=== PATIENT | male | born 1940 | race Caucasian/White ===

== ENCOUNTER 2016-12-06 19:49 | Inpatient (IN) | payer MEDICARE, OTHER ==
[~2016-12-06 19:49] MED LIST: ISOVUE-370 76%-LOCM 1 ML ONE
[2016-12-06] MEDS ORDERED: Diazepam 5 MG TAB ONE (22:27)
[2016-12-06] MEDS ORDERED: methylPREDNISolone Sod Succ/PF 125 MG/2 ML VIAL ONE (23:20)
[2016-12-06] MEDS ORDERED: diphenhydrAMINE HCl 50 MG/ML 1 ML VIAL ONE (23:20)
[2016-12-06] MEDS ORDERED: Famotidine/PF 20 mg/2ml Vial ONE (23:20)
[2016-12-06] MEDS ORDERED: Water For Inject, Bacteriostat 30 ML ONE (23:21)
--- NOTE | 2016-12-06 23:58 | ULT ---
SCROTAL ULTRASOUND: 12/06/16 INDICATION: History of lithotripsy with right testicular pain and swelling after helping up off the ground. FINDINGS: The right testicle measures 4.6 x 2.8 x 3.4 cm. The left testicle measures 4.0 x 2.4 x 3.2 cm. There is small bilateral hydroceles. There is normal flow to both testicles. There are bilateral epididym al cysts. The largest cyst within the right epididymal head measures 8 mm. The largest cyst within t he left epididymis measures 1.5 x 1 x 1.3 cm. There is mixed echogenicity soft tissue seen within the right inguinal canal without visible bowel g as suspicious for fat containing inguinal hernia. IMPRESSION: 1. Small bilateral hydroceles. 2. No intratesticular mass or torsion demonstrated. 3. Mixed echogenicity soft tissue seen within the right inguinal canal may reflect a fat contai mattie hernia or possibly a hernia containing decompressed bowel. Recommend correlation with the clini shanae exam. POS: [facility]
[2016-12-07 02:04] LABS: #Lymphocytes 0.8 thou/uL (1.20-3.40); #Monocytes 0.5 thou/uL (0.11-0.59); #Neutrophils 12.5 thou/uL (1.40-6.50); %Basophils 0.2 % (0.0-1.0); %Eosinophils 0.3 % (0.0-10.0); %Lymphocytes 5.6 % (21.0-51.0); %Monocytes 3.4 % (0.0-10.0); Hematocrit 43.2 % (42.0-52.0); Mean Platelet Volume 7.9 fL (7.4-10.4); Red Blood Cell (RBC) Count 4.65 mill/uL (4.70-6.10); White Blood Cell (WBC) Count 13.8 thou/uL (4.8-10.8)
[2016-12-07 02:30] LABS: ALT (SGPT) 17 U/L (8-55); AST (SGOT) 18 U/L (5-34); Alkaline Phosphatase 63 U/L (40-150); Anion Gap 13 mmol/L (10-20); BUN (Urea Nitrogen) 26 mg/dL (8.4-25.7); Bilirubin, Total 0.6 mg/dL (0.2-1.2); Calc. Creatinine Clearance 0 mL/min (70-130); Calcium 8.9 mg/dL (7.8-10.44); Carbon Dioxide 20 mmol/L (23-31); Chloride 108 mmol/L (98-107); Estimated GFR-MDRD 32; Globulin 2.6 g/dL (2.4-3.5); Magnesium 1.8 mg/dL (1.6-2.6); Protein, Total 6.6 g/dL (5.8-8.1)
[2016-12-07] MEDS ORDERED: Levofloxacin 500 mg/D5W 100 ml Premix Bag ONE (02:33)
[2016-12-07 03:10] LABS: Bilirubin Negative (Negative); Blood, Urine Large (Negative); Glucose, Urine (Dipstick) Negative (Negative); Ketone, Urine Negative (Negative); Nitrite Negative (Negative); Protein, Urine (Dipstick) 30 mg/dL (Neg-Trace); Urobilinogen 0.2 mg/dL (0.2-1.0)
[2016-12-07 03:16] LABS: Bacteria/HPF None Seen HPF (None Seen); Hyaline Casts/LPF 0-3 HYALINE CAST LPF (0-3 Hyaline); Squamous Epithelial None Seen HPF (0-3); WBC/HPF 0-3 HPF (0-3)
[2016-12-07] MEDS ORDERED: Labetalol HCl 100 MG/20 ML VIAL SLOW IVP PRN (03:48)
[2016-12-07] MEDS ORDERED: Ondansetron ODT 4 MG TAB SL PRN (03:48)
[2016-12-07] MEDS ORDERED: Ondansetron HCl/PF 4 MG/2 ML Vial IVP PRN ×2 (03:48→10:12)
[2016-12-07] MEDS ORDERED: HYDROcodone/Acetaminophen 5/325 mg Tablet PO PRN ×3 (03:48→10:08)
[2016-12-07 03:55] VITALS: BMI 29.2
[2016-12-07] MEDS ORDERED: Sodium Chloride 0.45% 1,000 ML IV SCH (04:00)
[2016-12-07] MEDS ORDERED: Bisacodyl 10 MG SUPP PR PRN (07:37)
[2016-12-07] MEDS ORDERED: Mag-Al 1200 mg/1200 mg/30 ML UDCUP PO PRN (07:37)
[2016-12-07 08:50] LABS: Anion Gap 15 mmol/L (10-20); BUN (Urea Nitrogen) 23 mg/dL (8.4-25.7); Calc. Creatinine Clearance 48 mL/min (70-130); Calcium 8.8 mg/dL (7.8-10.44); Carbon Dioxide 19 mmol/L (23-31); Chloride 108 mmol/L (98-107); Estimated GFR-MDRD 41
[2016-12-07] MEDS: Sodium Chloride 0.9% 1,000 ML IV SCH ×2 (08:54→17:12)
[2016-12-07] MEDS: Docusate 100 MG CAP PO SCH ×4 (08:56→21:48)
--- NOTE | 2016-12-07 09:24 | CT ---
PRELIMINARY REPORT/[facility]/EMERGENCY AFTER HOURS PROCEDURE: EXAM: CT Abdomen and Pelvis With Intravenous Contrast CLINICAL HISTORY: 76 years old, male; lower abdominal pain; Prior surgery: Post-operative (0-2 days); had right nephro lithotripsy previous day with ureteral dilation, experienced sudden onset of scrotal pain and swelli ng at 1700 after bending over. Swelling / pain increased with 2 subsequent urinations, though pain is minimal at rest. TECHNIQUE: Axial computed tomography images of the abdomen and pelvis with intravenous contrast. Coronal reformatted images were created and reviewed. CONTRAST: 70 mL of isovue 370- administered intravenously. COMPARISON: No relevant prior studies available. FINDINGS: Lower thorax: Mitral valve annulus calcification. ABDOMEN: Liver: Liver fatty infiltration. Gallbladder and bile ducts: Unremarkable. No calcified stones. No ductal dilation. Pancreas: Unremarkable. No mass. No ductal dilation. Spleen: Unremarkable. No splenomegaly. Adrenals: Unremarkable. No mass. Kidneys and ureters: Bilateral calcified renal stones. Satisfactory position of the right internal u reteral stent. Proximal pigtail is located within the right renal pelvis with distal pigtail located within the urinary bladder lumen. Mild right hydronephrosis despite the right internal ureteral stent - feliz nt partial occlusion is a possibility. Right perinephric fluid extending into the right anterolatera l pelvis. Fluid extends along the length of the right inguinal canal into the visualized superior right scrotu m. No left hydronephrosis. Stomach and bowel: Scattered colon diverticuli without evidence of diverticulitis. No obstruction. Appendix: No findings to suggest acute appendicitis. PELVIS: Bladder: Distended urinary bladder extending cephalad to the L5-S1 level. Small amount of air within the anterior aspect of the urinary bladder which is likely due to recent instrumentation. Infection cannot be totally excluded. Reproductive: Mild soft tissue edema of the visualized superior right scrotum. ABDOMEN and PELVIS: Intraperitoneal space: Four or five small extraluminal air collections anterior to the right renal p zeus region / within the medial right perinephric region on axial images 32-39 and 45-47 - findings may be postsurgical in nature. Infection cannot be totally excluded. No significant fluid collection. Bones/joints: Spinal degenerative changes. No acute fracture. No dislocation. Soft tissues: Unremarkable. Vasculature: Unremarkable. No abdominal aortic aneurysm. Lymph nodes: Unremarkable. No enlarged lymph nodes. IMPRESSION: 1. Satisfactory position of the right internal ureteral stent. 2. Mild right hydronephrosis despite the right internal ureteral stent - stent partial occlusion is a possibility. Right perinephric fluid extending into the right anterolateral pelvis. Fluid extends along the length of the right inguinal canal into the visualized superior right scrotum. 3. Four or five small extraluminal air collections anterior to the right renal pelvis region / withi n the medial right perinephric region on axial images 32-39 and 45-47 - findings may be postsurgical in nature. Infection cannot be totally excluded. 4. Mild soft tissue edema of the visualized superior right scrotum. 5. Distended urinary bladder extending cephalad to the L5-S1 level. Small amount of air within the a nterior aspect of the urinary bladder which is likely due to recent instrumentation. Infection canno t be totally excluded. 6. Bilateral calcified renal stones. 7. Scattered colon diverticuli without evidence of diverticulitis. Thank you for allowing us to participate in the care of your patient. Dictated and Authenticated by: Marlon Mcneill MD 12/07/2016 12:44 AM Central Time ([place] \T\ [place]) FINAL REPORT CT ABDOMEN AND PELVIS WITH CONTRAST: HISTORY: Right-sided nephrolithotripsy. FINDINGS: Preliminary exam was performed by [facility]. A contrast enhanced CT of the abdomen and pelvis was performed. There is a right-sided ureteral stent. There is fluid seen tracking along the right perirenal space , extending into the right inguinal canal. Bilateral renal calculi are seen. The right ureteral st ent follows its normal course, with the proximal portion in the right renal pelvis and distally in t he bladder. There does appear to be a small amount of retroperitoneal gas just medial to the right renal pelvis and anterior to it. This may be from recent instrumentation and may be iatrogenically introduced gas. I concur with the dictation from [facility]. POS: [facility]
--- NOTE | 2016-12-07 09:27 | CT ---
PRELIMINARY REPORT/[facility]/EMERGENCY AFTER HOURS PROCEDURE: EXAM: CT Abdomen and Pelvis Without Intravenous Contrast CLINICAL HISTORY: 76 years old, male; lower abdominal pain; Prior surgery: Post-operative (0-2 days); had right nephro lithotripsy previous day with ureteral dilation, experienced sudden onset of scrotal pain and swelli ng at 1700 after bending over. Swelling / pain increased with 2 subsequent urinations, though pain is m inimal at rest. Additional info: *rescan done after delay TECHNIQUE: Axial computed tomography images of the abdomen and pelvis without intravenous contrast. Coronal reformatted images were created and reviewed. COMPARISON: CT Abdomen Pelvis W Con 12/07/2016 12:12:28 AM FINDINGS: Lower thorax: Mitral valve annulus calcification. ABDOMEN: Liver: Liver fatty infiltration. Gallbladder and bile ducts: Unremarkable. No calcified stones. No ductal dilation. Pancreas: Unremarkable. No mass. No ductal dilation. Spleen: Unremarkable. No splenomegaly. Adrenals: Unremarkable. No mass. Kidneys and ureters: Bilateral calcified renal stones. Satisfactory position of the right internal u reteral stent. Proximal pigtail is located within the right renal pelvis with distal pigtail located within the urinary bladder lumen. On delayed images, contrast material and perinephric fluid extend ing into the right anterolateral pelvis. Fluid extends along the length of the right inguinal canal into the visualized superior right scrotum. Likely leak from the proximal right ureter.. No left hyd ronephrosis. Stomach and bowel: Scattered colon diverticuli without evidence of diverticulitis. No obstruction. Appendix: No findings to suggest acute appendicitis. PELVIS: Bladder: Distended urinary bladder extending cephalad to the L5-S1 level. Small amount of air within the anterior aspect of the urinary bladder which is likely due to recent instrumentation. Infection cannot be totally excluded. Reproductive: Mild soft tissue edema of the visualized superior right scrotum. ABDOMEN and PELVIS: Intraperitoneal space: Four or five small extraluminal air collections anterior to the right renal p zeus region / within the medial right perinephric region on axial images 32-39 and 45-47 - findings may be postsurgical in nature. Infection or leak cannot be totally excluded. No significant fluid c ollection. Bones/joints: Spinal degenerative changes. No acute fracture. No dislocation. Soft tissues: Unremarkable. Vasculature: Unremarkable. No abdominal aortic aneurysm. Lymph nodes: Unremarkable. No enlarged lymph nodes. IMPRESSION: 1. Satisfactory position of the right internal ureteral stent. 2. Mild right hydronephrosis despite the right internal ureteral stent - stent partial occlusion is a possibility. On delayed images, contrast material and perinephric fluid extending into the right a nterolateral pelvis. Fluid extends along the length of the right inguinal canal into the visualized superior right scrotum. LIKELY LEAK FROM THE PROXIMAL RIGHT URETER. 3. Four or five small extraluminal air collections anterior to the right renal pelvis region / withi n the medial right perinephric region on axial images 32-39 and 45-47 - findings may be postsurgical in nature. Infection or leak cannot be totally excluded. 4. Mild soft tissue edema of the visualized superior right scrotum. 5. Distended urinary bladder extending cephalad to the L5-S1 level. Small amount of air within the a nterior aspect of the urinary bladder which is likely due to recent instrumentation. Infection canno t be totally excluded. 6. Bilateral calcified renal stones. 7. Scattered colon diverticuli without evidence of diverticulitis. 8. THIS REPORT CONTAINS FINDINGS THAT MAY BE CRITICAL TO PATIENT CARE. The findings were verbally communicated via telephone conference with RAMAN ABAD at 1:25 AM CD T on 12/07/2016. The findings were acknowledged and understood. Thank you for allowing us to participate in the care of your patient. Dictated and Authenticated by: Marlon Mcneill MD 12/07/2016 1:25 AM Central Time ([place] \T\ [place]) FINAL REPORT DELAYED CONTRAST ENHANCED CT IMAGES OF THE ABDOMEN AND PELVIS: FINDINGS: A preliminary exam was performed by [facility]. There appears to be perirenal right-sided fat stranding extending into the right inguinal canal. Th ere is extravasation of contrast outside the right ureter, along the right perirenal space. I concur with the dictation from [facility]. POS: [facility]
[2016-12-07] MEDS ORDERED: Zolpidem Tartrate 5 MG TAB PO PRN (10:12)
[2016-12-07] MEDS ORDERED: diphenhydrAMINE HCl 50 MG/ML 1 ML VIAL IVP PRN (10:12)
[2016-12-07] MEDS: cefTRIAXone\\ROCEPHIN 1 GM in Sodium Chloride 0.9% 100 ML IVPB SCH (11:03)
[2016-12-07] MEDS ORDERED: Morphine Sulfate 2 MG/ML SYRINGE IVP PRN (12:32)
--- NOTE | 2016-12-07 19:58 | CON ---
DATE OF CONSULTATION: 12/07/[address] Mccormick, primary urologist. PRIMARY CARE PHYSICIAN: Dr. Dennis Viveros. REASON FOR CONSULTATION: Right retroperitoneal fluid collection. Ureteral injury. HISTORY OF PRESENT ILLNESS: Mr. Holder is a pleasant 76-year-old male, postoperative day #2 for right ureteroscopy, dilation of right proximal ureter UPJ, renal stone extraction, laser lithotripsy, who presented to the emergency room due to abdominal distention, scrotal swelling. The patient stated that on postop day #1 began to have vague abdominal swelling, also resulting in right scrotal swelling. He has no significant flank or abdominal discomfort per se. This is mild. However, he was concerned about scrotal swelling. was also concerned regarding acute swelling of the scrotum and presented to the emergency room. He denies nausea, vomiting, fever, gross hematuria. Urine is Pyridium tinge as expected with an indwelling ureteral stent. He has mild leukocytosis of 13, has renal function, baseline creatinine of 1.0-1.5. On presentation, his creatinine increased to 2.0. CT of the abdomen and pelvis, stone protocol, scrotal ultrasound was obtained. This demonstrates nonspecific fluid collection in the right hemiscrotum, CT was done with and without IV contrast, which demonstrate extravasation of contrast in the proximal ureter with retroperitoneal extravasation, perinephritic stranding. The fluid does track in the retroperitoneum likely communicating with the scrotal contents resulting in the swelling. History of left UVJ stone which was treated successfully with resolution, he underwent right ureteroscopy this by Dr. Mccormick for elective treatment of his right renal lithiasis measuring 5 mm. Canas catheter has been placed per my request currently draining phani colored urine. Repeat creatinine this morning decreased to 1.64. He is nontoxic appearing, resting comfortably. He does relate baseline constipation in which he had a bowel movement approximately 4 days ago. PAST MEDICAL HISTORY: Cataracts, chickenpox, history of hernia, hyperlipidemia , history of mums, history of pneumonia, history of coronary artery disease with bypass with normal ejection fraction. PAST SURGICAL HISTORY: 1. Bypass quadruple, status post vasectomy, tonsillectomy, adenoidectomy, right orthopedic surgery, knee surgery. 2. On 07/17/2016, left ureteroscopy, laser lithotripsy, stent placement, extraction of UVJ stone. 3. Postop day #2, cystoscopy, right retrograde, ureteral dilatation of the proximal ureter, 6 x 26 stent, laser lithotripsy of stone by Dr. Mccormick. ALLERGIES: To IODINE which causes swelling, CODEINE causes nausea per patient, however, able to tolerate hydrocodone without significant issues. HOME MEDICATIONS: Include Centrum, Crestor, aspirin 325, Topamax 50 mg 1 p.o. b.i.d. CURRENT MEDICAITONS: Include Rocephin, allopurinol, Dulcolax, Zofran p.r.n., morphine, hydrocodone p.r.n. I did transition him to Myrbetriq from oxybutynin due to chronic constipation. REVIEW OF SYSTEMS: Ten point review of systems as above, otherwise noncontributory. PHYSICAL EXAMINATION: VITAL SIGNS: Stable, 97, 78, 14, 122/71. Urine output 900 mL since admission last night. GENERAL: The patient appears to be in no acute distress. HEENT: Grossly unremarkable. HEART: Regular rate. LUNGS: Clear. ABDOMEN: Soft. No rigidity, no rebound, no CVA tenderness is appreciated. GENITOURINARY: Circumcised phallus. Canas catheter in appropriate position, demonstrating phani Pyridium tinged urine, there is a moderate bilateral hydrocele, right greater than left. There is no evidence of intratesticular mass. No gross inguinal hernia appreciated. Some pitting edema of his scrotum , otherwise no erythema, induration or crepitus. PERTINENT LABS AND IMAGING: On admission, his creatinine is 2.04 with baseline creatinine of 1.0-1.5, this morning is 1.64 with IV fluid hydration. On admission, his white count is 13.8, hemoglobin 14, platelet 140, 90 segs shift. Urine culture preop 11/27 is negative. I did review his prior urine culture in the past, demonstrating E. coli resistant to quinolones. KUB, 12/05. Right mid pole punctate renal lithiasis. Right lower pole [address] of the abdomen and pelvis with and without IV contrast early this morning demonstrates symmetric uptake of kidneys bilaterally, right ureteral stent is in appropriate position. Per my review, there is mild hydronephrosis; however, there is no evidence of obstructive uropathy, A there is contrast coursing down the course of the ureter, there is air adjacent to the proximal ureter with extravasation of contrast at the proximal ureter tracking along the retroperitoneum with reactive retroperitoneal fat stranding. This does course along the retroperitoneum likely communicating with the right inguinal canal scrotum. Scrotal ultrasound demonstrates no evidence of intratesticular mass or torsion. Small bilateral hydrocele, mixed echogenic fluid in the right inguinal canal, nonspecific. IMPRESSION AND PLAN: Mr. Holder is a 76-year-old male with history of coronary artery disease, recurrent kidney stone, postop day #2, right ureteroscopy, laser lithotripsy, dilation of the proximal ureter ureteropelvic junction. His intraoperative records were reviewed. There was a small mucosal tear in the ureteropelvic junction, area of dilation as it was narrow, unable to pass the ureteroscope. As the ureteral stent is in appropriate position, expect resolution with with stent for few weeks, optimize antegrade drainage with indwelling Canas catheter. Scrotal edema, swelling is expected as the extravasation of fluid present in the retroperitoneum as it does communicate; expect resolution over course of time. As his prior urine culture in the past was resistant to quinolones, will transition to Rocephin. Myrbetriq started for history of constipation, discontinue oxybutynin. The patient on Topamax, unclear to me why he is on Topamax, discussed with patient and family that it can be associated with lithogenic properties. Scrotal elevation is advised. MTDD
[2016-12-07] MEDS: Loratadine 10 MG TAB PO SCH (21:48)
[2016-12-08] MEDS: Sodium Chloride 0.9% 1,000 ML IV SCH ×4 (01:02→20:24)
[2016-12-08 06:06] LABS: #Eosinphils 0.1 thou/uL (0.0-0.7); #Lymphocytes 1.6 thou/uL (1.20-3.40); #Monocytes 1.2 thou/uL (0.11-0.59); #Neutrophils 11.5 thou/uL (1.40-6.50); %Basophils 0.1 % (0.0-1.0); %Eosinophils 0.4 % (0.0-10.0); %Lymphocytes 10.8 % (21.0-51.0); %Monocytes 8.6 % (0.0-10.0); Hematocrit 40.6 % (42.0-52.0); Mean Platelet Volume 8.5 fL (7.4-10.4); Red Blood Cell (RBC) Count 4.29 mill/uL (4.70-6.10); White Blood Cell (WBC) Count 14.3 thou/uL (4.8-10.8)
[2016-12-08 06:14] LABS: Anion Gap 12 mmol/L (10-20); BUN (Urea Nitrogen) 20 mg/dL (8.4-25.7); Calc. Creatinine Clearance 71 mL/min (70-130); Calcium 8.3 mg/dL (7.8-10.44); Carbon Dioxide 16 mmol/L (23-31); Chloride 115 mmol/L (98-107); Estimated GFR-MDRD 65
[2016-12-08] MEDS: Docusate 100 MG CAP PO SCH ×4 (09:32→20:37)
[2016-12-08] MEDS: Allopurinol 100 MG TAB PO SCH (09:32)
[2016-12-08] MEDS: cefTRIAXone\\ROCEPHIN 1 GM in Sodium Chloride 0.9% 100 ML IVPB SCH (09:43)
--- NOTE | 2016-12-08 14:35 | PRG ---
DATE OF SERVICE: 12/08/2016 SUBJECTIVE: The patient without complaints, doing well, has had multiple bowel movements, with Dulcolax suppository provided due to history of constipation. Denies flank pain. is at bedside. PHYSICAL EXAMINATION: VITAL SIGNS: Stable. No fever. I's and O's 4150 in and 3725 out, positive 400 mL, 3 BMs. ABDOMEN: Soft, nontender, no rigidity, no rebound, no ecchymosis is appreciated. GENITOURINARY: Demonstrates decreased scrotal edema. It is elevated per my request. No fluctuance. Canas catheter draining phani-tinged urine. LABORATORY DATA: White count today is 14.3, hemoglobin 13, 80 segs, platelet 147, BUN 20, creatinine on admission is 2.0, this morning is 1.1. He is somewhat acidotic with a carbon dioxide of 16, chloride 115. Urine culture preliminary is negative. IMPRESSION AND PLAN: Mr. Holder is a pleasant 76-year-old male postop day #3 status post right ureteroscopy, laser lithotripsy, balloon dilation of ureteropelvic junction stricture with subsequent ureteral extravasation resulting in retroperitoneal fluid collection, scrotal edema. His kidney function is improving with observation, IV fluids. As he has positive fluid balance, decrease IV fluids. Continue Rocephin coverage for now. Bilateral PACO nick, SCDs to continue patient out of bed. Although, patient is doing better, due to elevated white count and metabolic acidosis, it would be prudent to watch observe another day. patient will need go home with indwelling urethral Canas catheter to gravity. We will require followup staging IVP versus retrograde pyelogram prior to stent removal given degree of extravasation. Repeat CBC/BMP in a.m. We'll notify Dr. Mccormick in a.m. to resume care MTDD
[2016-12-08] MEDS: Loratadine 10 MG TAB PO SCH (20:26)
[2016-12-09 05:52] LABS: #Eosinphils 0.2 thou/uL (0.0-0.7); #Lymphocytes 1.5 thou/uL (1.20-3.40); #Monocytes 1.2 thou/uL (0.11-0.59); #Neutrophils 8.4 thou/uL (1.40-6.50); %Basophils 0.2 % (0.0-1.0); %Eosinophils 1.9 % (0.0-10.0); %Lymphocytes 12.9 % (21.0-51.0); %Monocytes 10.3 % (0.0-10.0); Hematocrit 41.7 % (42.0-52.0); Mean Platelet Volume 8.3 fL (7.4-10.4); Red Blood Cell (RBC) Count 4.43 mill/uL (4.70-6.10); White Blood Cell (WBC) Count 11.3 thou/uL (4.8-10.8)
[2016-12-09 06:07] VITALS: BP 125/73; TEMP 98.3
[2016-12-09 06:10] LABS: Anion Gap 13 mmol/L (10-20); BUN (Urea Nitrogen) 15 mg/dL (8.4-25.7); Calc. Creatinine Clearance 81 mL/min (70-130); Calcium 8.1 mg/dL (7.8-10.44); Carbon Dioxide 19 mmol/L (23-31); Chloride 111 mmol/L (98-107); Estimated GFR-MDRD 75
[2016-12-09] MEDS: Docusate 100 MG CAP PO SCH ×2 (08:29→08:32)
[2016-12-09] MEDS: Allopurinol 100 MG TAB PO SCH (08:31)
--- NOTE | 2016-12-09 09:42 | PRG ---
DATE OF SERVICE: 12/09/2016 SUBJECTIVE: The patient states he is feeling fine. No complaints of pain, bladder spasms, flank pa in or scrotal pain. States his scrotal edema is significantly improved. He is ready to go home. OBJECTIVE: VITAL SIGNS: Temperature 98.3, pulse 68, respirations 16, blood pressure 125/73, saturation 94% on room air. GENERAL: No apparent distress, communicative, and alert. CARDIOVASCULAR: Regular rate and rhythm. CHEST: No increased work of breathing, clear anteriorly. ABDOMEN: Soft, nontender, and nondistended. Slightly protuberant, positive bowel sounds. GENITOURINARY: Canas catheter in place, secured with StatLock with minimally blood tinged urine. EXTREMITIES: No clubbing, cyanosis or edema. LABORATORY DATA: On laboratory evaluation, a full set of labs are in the [facility] system, which I h ave reviewed. Of note, patient's current white count is 11.3 with creatinine of 0.97. Urine cultur e is negative as of 12/07/2016. ASSESSMENT AND PLAN: A 76-year-old white male with a right uteropelvic junction obstruction and nep hrolithiasis, status post balloon dilation and laser lithotripsy with removal of stone, readmitted f or urine leak. This seems to have resolved and he is doing better with placement of a Canas cathete r. I have recommended continuation of the Canas catheter to prevent urine refluxing up the stent an d causing further leakage. The plan is still to remove his stent on 12/19/2015 when he has schedule d to followup with me, at which time he will have an intravenous pyelogram ordered. Additionally, i f there is a leak at that time, we will leave the catheter and stent in longer. If there is no leak , we will remove his catheter and stent at that time. I will keep him on Myrbetriq to avoid constip ation, although he does not need to take the medication if he is not having bladder spasms. He shou ld go home with his Canas catheter to large gravity bag and can use a leg bag if needed for ambulati on and going out of the house. Activity restrictions are the same as previous, although he should n ot submerge underwater now that he has a catheter. He also should not drive with a large drainage b ag, but only with the leg bag. I will also keep him on Omnicef once a day for prophylaxis. Follow up was scheduled IVP beforehand.
[2016-12-09] MEDS: cefTRIAXone\\ROCEPHIN 1 GM in Sodium Chloride 0.9% 100 ML IVPB SCH (11:12)
--- NOTE | 2016-12-11 20:17 | DIS ---
DATE OF ADMISSION: 12/08/2016 DATE OF DISCHARGE: 12/09/2016 ADMITTING PHYSICIAN: Rhonda Ceballos D.O. DISCHARGING PHYSICIAN: Alfa Mccormick M.D. ADMITTING DIAGNOSIS: Ureteral perforation with scrotal edema. DISCHARGE DIAGNOSIS: Ureteral perforation with scrotal edema. BRIEF HISTORY: Mr. Holder is a 76-year-old white male who initially came into the hospital for scrot al pain and abdominal pain as well as flank pain. CT with contrast demonstrated a ureteral leak wit h tracking down the retroperitoneum to the scrotum. The patient did have scrotal edema. Previously , he had undergone a recent right-sided ureteroscopy with removal of a renal pelvic stone as well as dilation of the UPJ obstruction. It was noted that mucosa of the ureter did split at the time of t he dilation, a stent was left in for this purpose, which the patient still has in place. Full repor t can be found in the [facility] system. HOSPITAL COURSE: The patient had a Canas catheter placed and was admitted to the hospital with anti biotics. The patient's scrotal edema significantly improved with resolution of an elevated creatini ne back to normal at 0.7. His pain went away and he felt significantly better. He was discharged h ome with his Canas catheter and stent still in place. DISCHARGE CONDITION: Good. DISPOSITION: Discharge to home with Canas catheter. DISCHARGE INSTRUCTIONS: To keep Canas catheter to gravity drainage, leg bag instructions were provi ded. He is to follow all the same instructions otherwise for his ureteral stent. DISCHARGE MEDICATIONS: Include patient being started on Omnicef prophylaxis once a day and remain o n his other home medications. He will follow up with me in approximately 2 weeks with an IVP done b jennifer at which time we will evaluate if he is ready to have his ureteral stent removed or not.
== END 2016-12-09 13:40 | disposition home or self-care (01) | DRG 699 ==
LOC: ERS 19:49 → SURG A 12-07 02:00 → OBSVTOIN 12-08 11:41
PROVIDERS: ADMIT Urology; ATTEND Urology
DX: S37.19XA Other injury of ureter, initial encounter (principal); N13.30 Unspecified hydronephrosis; E87.2 Acidosis; N28.89 Other specified disorders of kidney and ureter; N50.89 Other specified disorders of the male genital organs; Z96.0 Presence of urogenital implants; E78.5 Hyperlipidemia, unspecified; I25.10 Atherosclerotic heart disease of native coronary artery without angina pectoris; Z95.1 Presence of aortocoronary bypass graft; Z88.5 Allergy status to narcotic agent; Z91.041 Radiographic dye allergy status; Z79.82 Long term (current) use of aspirin; K57.30 Diverticulosis of large intestine without perforation or abscess without bleeding; Z87.891 Personal history of nicotine dependence
CPT/HCPCS: 36415; 51702; 74000; 74176; 74177; 74420; 76870; 80048; 80053; 81003; 81015; 82365; 83735; 85025; 87086; 88300; 90471; 90732; 93976; 96361; 96365; 96375; A4216; C1758; C1769; G0009; J0696; J1100; J1200; J1956; J2001; J2405; J2704; J2930; J3010; J7050; Q9961; Q9967; S0028

== ENCOUNTER 2016-12-18 09:18 | Outpatient (CLI) | payer MEDICARE ==
--- NOTE | 2016-12-18 12:47 | RAD ---
IVP: HISTORY: Ureteral leak. Followup. FINDINGS: Index Clerk KUB shows a nonspecific bowel gas pattern. Double pigtail catheter overlies the course of the right ureter. Prompt and symmetric nephrograms are demonstrated on the early images. Minimal right caliectasis is apparent. The left renal collecting system and ureter are decompressed. No leak of contrast is se en from the right ureter. The contrast filled urinary bladder is unremarkable. A Canas catheter wa s used to drain the bladder. IMPRESSION: Right ureteral stent is in good position and functioning properly. No evidence of ureteral leak. POS: [facility]
[2016-12-18] MEDS ORDERED: Iopamidol 300 61% 100 ML VIAL FS ONE (16:33)
== END 2016-12-18 09:19 | disposition home or self-care (01) ==
LOC: RAD 09:18
PROVIDERS: ATTEND Urology
DX: N28.89 Other specified disorders of kidney and ureter (principal); Z96.0 Presence of urogenital implants
CPT/HCPCS: 74410

== ENCOUNTER 2017-02-26 09:24 | Outpatient (CLI) | payer MEDICARE ==
--- NOTE | 2017-02-26 11:00 | ULT ---
BILATERAL RENAL ULTRASOUND: Date: 02/26/17 COMPARISON: None. HISTORY: Stricture of the ureter. TECHNIQUE: Multiplanar Solis scale and color Doppler images were obtained in a renal ultrasound. FINDINGS: There is an echogenic focus in the right kidney measuring 5.0 mm in greatest dimension, which is nons hadowing. No echogenic foci are seen in the left kidney. There is no evidence of hydronephrosis. The kidneys demonstrate normal cortical echogenicity and measure 11.1 and 12.2 cm in length on the right and left, respectively. Limited visualization of the urinary bladder is unremarkable. IMPRESSION: 1. No evidence of hydronephrosis. 2. Echogenic focus in the right kidney may represent a nonobstructing renal calcification. POS: [facility]
== END 2017-02-26 09:25 | disposition home or self-care (01) ==
LOC: ULT 09:24
PROVIDERS: ATTEND Urology
DX: N13.5 Crossing vessel and stricture of ureter without hydronephrosis (principal); N28.89 Other specified disorders of kidney and ureter
CPT/HCPCS: 76770

== ENCOUNTER 2018-03-02 13:35 | Observation (INO) | payer MEDICARE ==
[2018-03-02 15:05] VITALS: BMI 28.9
[2018-03-02] MEDS ORDERED: Sodium Chloride 0.9% 1,000 ML IV SCH (16:00)
[2018-03-02 16:20] LABS: Hemoglobin 15.4 g/dL (14.0-18.0); Mean Corpuscular HGB CONC 34.6 g/dL (32.0-36.0); Mean Corpuscular Hemoglobin 31.9 pg (27.0-31.0); Mean Platelet Volume 8.5 fL (7.4-10.4); Platelet Count 159 thou/uL (130-400); RBC Distribution Width 11.7 % (11.5-14.5); Red Blood Cell (RBC) Count 4.82 mill/uL (4.70-6.10); White Blood Cell (WBC) Count 7.5 thou/uL (4.8-10.8)
[2018-03-02 16:27] LABS: PTT 40.4 SEC (22.9-36.1); Prothrombin Time 13.3 SEC (12.0-14.7)
[2018-03-02] MEDS ORDERED: Gentamicin 80 MG/2 ML VIAL ONE (16:35)
[2018-03-02] MEDS ORDERED: CEFAZOLIN 1 GM VIAL ONE (16:35)
[2018-03-02 16:36] LABS: ALT (SGPT) 38 U/L (8-55); AST (SGOT) 33 U/L (5-34); Albumin 4.2 g/dL (3.4-4.8); Alkaline Phosphatase 62 U/L (40-150); Anion Gap 10 mmol/L (10-20); BUN (Urea Nitrogen) 14 mg/dL (8.4-25.7); Bilirubin, Total 0.6 mg/dL (0.2-1.2); Calc. Creatinine Clearance 67 mL/min (70-130); Calcium 9.3 mg/dL (7.8-10.44); Carbon Dioxide 28 mmol/L (23-31); Chloride 106 mmol/L (98-107); Estimated GFR-MDRD 61; Globulin 2.4 g/dL (2.4-3.5); Glucose 89 mg/dL (83-110); Potassium 4.5 mmol/L (3.5-5.1); Protein, Total 6.6 g/dL (5.8-8.1); Sodium 139 mmol/L (136-145)
[2018-03-02] MEDS ORDERED: CEFAZOLIN 2 GM/50 ML BAG ONE (16:36)
[2018-03-02 16:38] LABS: Eosinophils 1 % (0-10); Lymphocytes 18 % (21-51); MDiff Complete? YES; Monocytes 7 % (0-10); Neutrophil 73 % (42-75); PLT Morphology Comment Appears Adequate; RBC Morphology Normal
[2018-03-02] MEDS ORDERED: Midazolam HCl 2 mg/2 ml Vial ONE (17:42)
--- NOTE | 2018-03-02 20:06 | RAD ---
PORTABLE CHEST: 03/02/2018 PROVIDED CLINICAL HISTORY: Post cardiac device placement. COMPARISON: 12/28/2011 FINDINGS: The cardiac and mediastinal silhouette are within normal limits. Median sternotomy changes are seen. A left subclavian cardiac pacing device is now present, with lead tips overlying the expected locat ions of the RA and the RV. No focal consolidation or pneumothorax apparent. Blunting of the left co stophrenic angle is seen, which could reflect pleural fluid or scarring. IMPRESSION: Post cardiac device placement, as above. POS: MACARIO
[2018-03-02] MEDS: Rosuvastatin 20 MG TAB PO SCH (21:00)
[2018-03-03] MEDS: Aspirin 325 mg Enteric Coated Tablet PO SCH (09:09)
--- NOTE | 2018-03-03 12:07 | RAD ---
PORTABLE UPRIGHT FRONTAL CHEST RADIOGRAPH: 03/03/2018 HISTORY: Evaluate pacemaker lead location. COMPARISON: 03/02/2018 FINDINGS: There is a stable dual-lead transvenous pacing device, inserted via a left subclavian approach, with a lead overlying the expected location of the right atrium and the right ventricle. The location of the pacing leads appears unchanged, when compared to the 03/02/2018 examination. No additional lonny rison imaging is available. There are midline sternotomy wires present, and there are mediastinal clips noted. There are postope rative anchors overlying the right humeral head. There is mild interstitial prominence with pulmonar y hyperinflation. There is no lobar consolidation or alveolar edema. IMPRESSION: Stable appearance of the chest, as detailed above. POS: C
[2018-03-03] MEDS ORDERED: CEFAZOLIN 2 GM/50 ML BAG ONE (16:24)
[2018-03-03] MEDS ORDERED: CEFAZOLIN 1 GM VIAL ONE (16:24)
[2018-03-03] MEDS ORDERED: Gentamicin 80 MG/2 ML VIAL ONE (16:24)
[2018-03-03] MEDS ORDERED: Midazolam HCl 2 mg/2 ml Vial ONE (17:30)
[2018-03-03] MEDS ORDERED: Fentanyl 100 MCG/2 ML VIAL ONE (17:30)
--- NOTE | 2018-03-03 17:54 | EKG ---
Test Reason : Blood Pressure : / mmHG Vent. Rate : 079 BPM Atrial Rate : 079 BPM P-R Int : 200 ms QRS Dur : 122 ms QT Int : 390 ms P-R-T Axes : 007 089 082 degrees QTc Int : 447 ms Normal sinus rhythm Left ventricular hypertrophy with QRS widening and repolarization abnormality Abnormal ECG When compared with ECG of 31-JUL-2016 13:29, QRS duration has increased Non-specific change in ST segment in Lateral leads Nonspecific T wave abnormality now evident in Inferior leads Confirmed by GIL CHRISTIE ([id number]) on 03/03/2018 5:54:09 PM Referred By: ZACKERY Confirmed By:GIL CHRISTIE
--- NOTE | 2018-03-03 19:31 | CCL ---
DATE OR PROCEDURE: 03/02/18 INDICATION: 77-year-old patient with third degree heart block and syncope. He was advised to undergo dual chamber pacemaker insertion. This was performed today without difficul ty or complications. A full dictated note can be found in the chart. He was implanted with an MRI com patible device from [employer] with two screw-in leads. One in the atrium and on in the vent ricle. There were no complications or difficulties encountered.
--- NOTE | 2018-03-03 19:51 | CCL ---
DATE OF PROCEDURE: 03/03/18 INDICATIONS FOR PROCEDURE: The patient underwent a dual chamber pacemaker insertion yesterday due to eminent third degree heart block with syncope. The device was interrogated and found to have significant increase in the impedan ce. It was felt that this may be some micro dislodgement. The patient was taken back to the cardiac quality lab technician for lead revision and the patient was given some I V Versed as well as IV Fentanyl for conscious sedation. Then the pacemaker pocket using local anesthe bisi, the pacemaker pocket was carefully dissected. The pacemaker with the leads were removed. The humble ds interrogated and were found to have normal sensing and normal thresholds. We then reattached the l hakeem to the device and put the device back in the pocket and then again high impedance was noted wher eas there was normal impedance noted on the pacemaker leads themselves. We then realized the problem the actual device, the generator, and this generator was found to be defective and this generator was then exchanged out for a new generator and then were was normal sensing and normal threshold and the impedance was back down to normal. IMPRESSION: Pacemaker generator change out due to malfunction of the actual pacemaker to the defective device. Ot herwise the patient tolerated the procedure well without difficulties or complications. Throughout th e procedure, he was monitored by an independent observer present for heart rate, blood pressure, and O2 saturation. They remained stable throughout the procedure.
[2018-03-03] MEDS: Rosuvastatin 20 MG TAB PO SCH (20:21)
[2018-03-03] MEDS: Cephalexin 250 MG CAP PO SCH (23:27)
[2018-03-04] MEDS: Cephalexin 250 MG CAP PO SCH ×2 (06:03→11:43)
[2018-03-04] MEDS: Aspirin 325 mg Enteric Coated Tablet PO SCH (08:25)
[2018-03-04 12:03] VITALS: TEMP 98.4
[2018-03-04 12:15] VITALS: BP 173/77
--- NOTE | 2018-03-04 16:40 | DIS ---
DATE OF ADMISSION: 03/02/2018 DATE OF DISCHARGE: 03/04/2018 Mr. Holder is doing well today, and he is ready to be discharged. FINAL DIAGNOSES: 1. Episodes of complete heart block resulting in syncope. 2. History of coronary artery disease. PROCEDURES: Permanent pacemaker insertion by Dr. Max Hunter. HOSPITAL COURSE: The patient was brought to the hospital after having syncopal episodes and be found to have episodes of complete AV block with ventricular standstill for over 4 seconds. He had multiple near syncopal episodes and some presyncopal episodes. He underwent pacemaker insertion two days ago, but later, it was found that the device was not working properly. Then, he was taken back to the qc lab technician by Dr. Hunter and found that the pacemaker generator was not functioning normally. He was given a new generator. The leads were in good position. No changes were made with leads. The device was checked trans-telephonically today, and it is functioning normally. He will be released to home with the same medicine that he came in on with the addition of Keflex 250 mg 4 times a day for five days. He will follow up with Dr. Hunter in one month. Job ID: [id number]
== END 2018-03-04 15:14 | disposition home or self-care (01) ==
LOC: 2SW 14:11
PROVIDERS: ADMIT Internal Medicine Cardiovascular Disease; ATTEND Internal Medicine Cardiovascular Disease
PROC: 0JH606Z Insertion of Pacemaker, Dual Chamber into Chest Subcutaneous Tissue and Fascia, Open Approach (ICD-10-PCS; principal; 2018-03-02)
PROC: 02H63JZ Insertion of Pacemaker Lead into Right Atrium, Percutaneous Approach (ICD-10-PCS; 2018-03-02)
PROC: 02HK3JZ Insertion of Pacemaker Lead into Right Ventricle, Percutaneous Approach (ICD-10-PCS; 2018-03-02)
PROC: 0JPT0PZ Removal of Cardiac Rhythm Related Device from Trunk Subcutaneous Tissue and Fascia, Open Approach (ICD-10-PCS; 2018-03-03)
PROC: 0JH606Z Insertion of Pacemaker, Dual Chamber into Chest Subcutaneous Tissue and Fascia, Open Approach (ICD-10-PCS; 2018-03-03)
DX: I44.2 Atrioventricular block, complete (principal); I25.10 Atherosclerotic heart disease of native coronary artery without angina pectoris; I35.0 Nonrheumatic aortic (valve) stenosis; T82.111A Breakdown (mechanical) of cardiac pulse generator (battery), initial encounter; I10 Essential (primary) hypertension; Z79.82 Long term (current) use of aspirin; Z79.899 Other long term (current) drug therapy; Z88.5 Allergy status to narcotic agent; Z91.041 Radiographic dye allergy status
CPT/HCPCS: 33208; 33228; 71045 ×2; 80053; 85025; 85610; 85730; 93005; 93798 ×2; C1785; C1898 ×2; G0378; 93010; 99152; 99153; J0690; J1580; J2250; J3010

== ENCOUNTER 2019-09-01 11:03 | Outpatient (CLI) | payer MEDICARE ==
--- NOTE | 2019-09-01 11:23 | RAD ---
EXAM: Chest 2 views: HISTORY: Cough COMPARISON: 05/25/2018 FINDINGS: There is a normal-sized cardiomediastinal silhouette. The patient is status post sternotomy. The pac emaker is unchanged in position. Biapical pleural thickening is seen. There is no evidence of consolidation, mass, or pleural effusion. The bones are unremarkable. IMPRESSION: No evidence of acute cardiopulmonary disease
== END 2019-09-01 11:04 | disposition home or self-care (01) ==
LOC: BICRAD 11:03
PROVIDERS: ATTEND Specialist
DX: R06.09 Other forms of dyspnea (principal)
CPT/HCPCS: 71046

== ENCOUNTER 2019-12-06 16:35 | Inpatient (IN) | payer MEDICARE, OTHER ==
[2019-12-06] MEDS ORDERED: Ondansetron PF 4 MG/2 ML Vial IVP PRN (20:09)
[2019-12-06] MEDS ORDERED: Acetaminophen 325 MG TAB PO PRN (20:10)
[2019-12-06 21:47] VITALS: BMI 29.9
[2019-12-06] MEDS: Acetaminophen 325 MG TAB PO SCH (22:06)
[2019-12-06] MEDS: Rosuvastatin 20 MG TAB PO SCH (22:06)
[2019-12-06] MEDS: Sodium Chloride 0.9% 1,000 ML IV SCH (22:06)
[2019-12-06] MEDS: Hydroxychloroquine Sulfate 200 MG TAB PO SCH (22:06)
--- NOTE | 2019-12-06 23:28 | HP ---
CHIEF COMPLAINT ON ADMISSION: COVID-19. 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 He came to Dr. Viveros' office and saw his nurse practitioner at that time. He was felt to had a sinus infection, put on Zithromax, Z-Andrei at that time. Two days later, he developed anosmia and lost both taste and smell. Over the next 5 days, he became progressively more short winded with eventually getting a cough. At this point, he called Dr. Viveros' office and was directed to go to [facility] and get COVID tested at which time he returned positive and the ER MD at [facility] called Dr. Viveros, explained that his O2 sats were running 92% to 93% and had been febrile, so that Dr. Viveros accepted him and transferred to [facility] for inpatient care. The chest x-ray done at [facility] showed no acute disease. He had no known exposure to COVID-19, but with his regular fever and increasing shortness of breath, he was quite concerned. No vomiting, diarrhea were noted. The patient also has body aches, especially in his flank and sore throat. He is at high risk with his advanced age and history of asbestos exposure. He denies any nasal discharge. He denies also chest pain. He has bilateral flank cramps that are sudden and intense that are not associated with food or any movement, but he thinks that he hurt his side initially by sneezing. PAST MEDICAL HISTORY: Significant for coronary artery disease and congestive heart failure. He has had stent placements and a pacemaker placed. 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 He has dyslipidemia and hyperuricemia. He also has a history of kidney stones. PAST SURGICAL HISTORY: Include in 2012, a four vessel bypass, in 2017, urologic procedure for kidney stones. He has had adenoidectomy, hernia repair, tonsillectomy, and vasectomy as well as right knee surgery. PSYCHIATRIC HISTORY: Negative. FAMILY HISTORY: Negative. SOCIAL HISTORY: He is a former tobacco smoker. He has quit greater than 10 years. He has no reported alcohol use or illicit drug use. He is and retired from the [employer]. REVIEW OF SYSTEMS: Constitutionally, he has had both fever and malaise. HEENT: He had has loss of taste and smell, but denies any drainage from eyes, ears, nose, or throat. CHEST: Significant for cough and shortness of breath. CARDIOVASCULAR: No palpitations or chest pain. GI: No nausea, vomiting, or diarrhea. : No dysuria or blood in urine or stool. MUSCULOSKELETAL: He has intense muscle cramps in his right flank, which also involved his left leg, these are intermittent. SKIN: No new rashes or lesions, but hot from his fever. NEUROLOGIC: Has no trouble with mentation, memory, focus, hypesthesias or areas of anesthesia. He does have headache. PHYSICAL EXAMINATION: VITAL SIGNS: At the time of admission, weight 200 pounds, height 5 feet 8 inches, BMI 30.31, heart rate 97, respiratory rate 20, O2 saturation 93% on room air, temperature 99. GENERAL: This is a well-developed, well-nourished, elderly male, alert, oriented, cooperative. HEENT: Normocephalic, atraumatic. Pupils are equal, round, and reactive to light. Arcus senilis bilaterally. TMs, nares, and pharynx are clear. NECK: Supple. Trachea midline. No adenopathy. CHEST: Clear diffusely with diminished breath sounds diffusely. HEART: Regular rate and rhythm tachycardic. ABDOMEN: Soft without organomegaly. : Deferred. EXTREMITIES: Without clubbing, cyanosis, or edema. SKIN: Hot to touch without rashes or lesions. NEUROLOGIC: Cranial nerves are intact. Mental status is at baseline. Gait and cerebellar function are normal. Sensory exam is grossly intact. LABORATORY DATA: Lab work at the time of admission, WBC 7.8, hemoglobin is 18.1, hematocrit is 54.4 with platelets of 139, glucose 115, BUN 22, creatinine 1.4 with a CK elevated at 263. Sodium 135, potassium is 4.8, chloride 98, CO2 23. IMAGING: Chest x-ray, as mentioned previously, shows no acute process. Myoglobin is elevated at 314. Troponin less than 0.05. Albumin 4.5, ALP 66, ALT 193, amylase at 55, COVID-19 test positive. Other inflammatory markers were pending. ASSESSMENT: 1) COVID-19 in a high-risk individual due to advanced age and history of lung disease as well as 2) coronary artery disease. 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 Plan will be supportive measures with oxygen, fever control, hydroxychloroquine will be initiated along with zinc. We will maintain his usual medications. We will anticoagulate with Lovenox 40 and consider infectious disease consultation should he not respond well and serial re-evaluation. Job ID: [id number] MTDD
[2019-12-07] MEDS: Acetaminophen 325 MG TAB PO SCH ×7 (01:52→23:21)
[2019-12-07] MEDS: Sodium Chloride 0.9% 1,000 ML IV SCH ×3 (04:19→20:22)
[2019-12-07 04:55] LABS: Anion Gap 15 mmol/L (10-20); BUN (Urea Nitrogen) 22 mg/dL (8.4-25.7); Calc. Creatinine Clearance 64 mL/min (70-130); Calcium 8.1 mg/dL (7.8-10.44); Carbon Dioxide 23 mmol/L (23-31); Chloride 98 mmol/L (98-107); Estimated GFR-MDRD 60; Glucose 118 mg/dL (83-110); Potassium 3.6 mmol/L (3.5-5.1); Sodium 132 mmol/L (136-145)
[2019-12-07 05:02] LABS: Band 11 % (5-11); Hemoglobin 16.5 g/dL (14.0-18.0); Lymphocytes 11 % (21-51); MDiff Complete? YES; Mean Corpuscular Volume 91.3 fL (78.0-98.0); Monocytes 15 % (0-10); Neutrophil 63 % (42-75); Platelet Count 114 thou/uL (130-400); Platelet Morphology Comment Appears Decreased; RBC Distribution Width 12.6 % (11.5-14.5); Red Blood Cell (RBC) Count 5.32 mill/uL (4.70-6.10); White Blood Cell (WBC) Count 4.9 thou/uL (4.8-10.8)
--- NOTE | 2019-12-07 07:48 | RAD ---
Chest AP view INDICATION: History of Covid positive status COMPARISON: September 01, 2019 FINDINGS: Lungs: There is new airspace disease involving the left lower lobe with a small left pleural effusio n. Right lung appears clear. Cardiac silhouette: There is stable mild cardiomegaly and midline sternotomy changes. Dual-lead pace maker is unchanged overlying the left chest wall. Pulmonary vasculature: Normal Pleural spaces: Small left pleural effusion Upper abdomen: No abnormality seen. Osseous structures: There is a right rotator cuff repair. There is scattered degenerative change. Additional findings: None. IMPRESSION: 1. New airspace disease involving the left lower lobe with a small left pleural effusion is suspiciou s for pneumonia with parapneumonic effusion. Recommend continued radiographic follow-up. 2. Other findings as above
[2019-12-07] MEDS: Aspirin 81 mg Enteric Coated Tablet PO SCH (08:28)
[2019-12-07] MEDS: Enoxaparin Sodium 40 MG/0.4 ML SYRINGE SC SCH (08:28)
[2019-12-07] MEDS: Benzonatate 100 MG CAP PO PRN ×3 (08:29→23:31)
[2019-12-07] MEDS: Dexamethasone 4 MG TAB PO SCH (08:29)
[2019-12-07] MEDS: Allopurinol 100 MG TAB PO SCH (08:29)
[2019-12-07] MEDS: Zinc Sulfate 220 MG CAP PO SCH (08:29)
[2019-12-07] MEDS: Hydroxychloroquine Sulfate 200 MG TAB PO SCH ×2 (08:29→20:23)
[2019-12-07] MEDS: Rosuvastatin 20 MG TAB PO SCH (20:23)
[2019-12-08] MEDS: Azithromycin 500 MG in Sodium Chloride 0.9% 250 ML 250 ML IVPB SCH ×2 (01:47→23:19)
[2019-12-08 04:42] LABS: #Lymphocytes 0.7 thou/uL (1.20-3.40); #Monocytes 0.8 thou/uL (0.11-0.59); #Neutrophils 4.7 thou/uL (1.40-6.50); %Eosinophils 0.3 % (0.0-10.0); %Lymphocytes 10.8 % (21.0-51.0); %Monocytes 12.9 % (0.0-10.0); Hemoglobin 14.9 g/dL (14.0-18.0); Mean Corpuscular HGB CONC 33.5 g/dL (32.0-36.0); Mean Corpuscular Hemoglobin 30.8 pg (27.0-31.0); Mean Corpuscular Volume 91.9 fL (78.0-98.0); Platelet Count 103 thou/uL (130-400); RBC Distribution Width 12.4 % (11.5-14.5); Red Blood Cell (RBC) Count 4.85 mill/uL (4.70-6.10); White Blood Cell (WBC) Count 6.1 thou/uL (4.8-10.8)
[2019-12-08 04:48] LABS: Anion Gap 13 mmol/L (10-20); BUN (Urea Nitrogen) 22 mg/dL (8.4-25.7); Calc. Creatinine Clearance 79 mL/min (70-130); Calcium 7.9 mg/dL (7.8-10.44); Carbon Dioxide 21 mmol/L (23-31); Chloride 104 mmol/L (98-107); Estimated GFR-MDRD 76; Glucose 119 mg/dL (83-110); Potassium 3.9 mmol/L (3.5-5.1); Sodium 134 mmol/L (136-145)
[2019-12-08] MEDS: Acetaminophen 325 MG TAB PO SCH ×3 (05:25→12:20)
[2019-12-08] MEDS: Sodium Chloride 0.9% 1,000 ML IV SCH ×2 (05:48→08:21)
--- NOTE | 2019-12-08 08:02 | RAD ---
Exam: Chest one view HISTORY:COVID positive patient. Comparison: 12/07/2019 FINDINGS: Cardiac silhouette:Normal cardiac silhouette. There are sternotomy wires. Stable left-sided dual-lead transvenous pacemaker. Aorta: Atherosclerotic Pulmonary vessels: Normal Costophrenic angles: Clear LUNGS: Persistent but slightly decreased opacity in the left lower lobe. Pneumothorax: None Osseous abnormalities: None IMPRESSION: 1. Persistent but slightly decreased opacity in the left lower lobe.
[2019-12-08] MEDS: Benzonatate 100 MG CAP PO PRN ×2 (08:20→20:53)
[2019-12-08] MEDS: Dexamethasone 4 MG TAB PO SCH (08:20)
[2019-12-08] MEDS: Aspirin 81 mg Enteric Coated Tablet PO SCH (08:20)
[2019-12-08] MEDS: Zinc Sulfate 220 MG CAP PO SCH (08:20)
[2019-12-08] MEDS: Allopurinol 100 MG TAB PO SCH (08:20)
[2019-12-08] MEDS: Hydroxychloroquine Sulfate 200 MG TAB PO SCH ×2 (08:20→20:32)
[2019-12-08] MEDS: Enoxaparin Sodium 40 MG/0.4 ML SYRINGE SC SCH (08:21)
--- NOTE | 2019-12-08 16:11 | RAD ---
PORTABLE CHEST ONE VIEW: 12/08/19 at 3:40 p.m. HISTORY: COVID positive patient. COMPARISON: Earlier exam of 4:53 a.m. from the same date. FINDINGS: The mild opacity in the left lower lobe is again seen. The heart size is stable. Changes of median st ernotomy again seen. Left sided pacemaker device remains in place. The right lung is clear. Postop ch anges of right rotator cuff repair are again noted. IMPRESSION: Stable exam. POS: AH
[2019-12-08] MEDS: Rosuvastatin 20 MG TAB PO SCH (20:32)
[2019-12-08] MEDS ORDERED: Zolpidem Tartrate 5 MG TAB PO SCH (21:00)
[2019-12-09 05:07] LABS: #Lymphocytes 0.8 thou/uL (1.20-3.40); #Monocytes 0.7 thou/uL (0.11-0.59); #Neutrophils 6.4 thou/uL (1.40-6.50); %Basophils 0.1 % (0.0-1.0); %Eosinophils 0.2 % (0.0-10.0); %Lymphocytes 10.2 % (21.0-51.0); %Monocytes 9.1 % (0.0-10.0); %Neutrophils 80.4 % (42.0-75.0); Mean Corpuscular HGB CONC 34.3 g/dL (32.0-36.0); Mean Corpuscular Hemoglobin 31.6 pg (27.0-31.0); Mean Corpuscular Volume 92.2 fL (78.0-98.0); Mean Platelet Volume 8.8 fL (7.4-10.4); Platelet Count 103 thou/uL (130-400); RBC Distribution Width 12.4 % (11.5-14.5); Red Blood Cell (RBC) Count 4.42 mill/uL (4.70-6.10); White Blood Cell (WBC) Count 7.9 thou/uL (4.8-10.8)
[2019-12-09 05:27] LABS: Anion Gap 13 mmol/L (10-20); BUN (Urea Nitrogen) 20 mg/dL (8.4-25.7); Calc. Creatinine Clearance 85 mL/min (70-130); Calcium 7.8 mg/dL (7.8-10.44); Carbon Dioxide 22 mmol/L (23-31); Chloride 104 mmol/L (98-107); Estimated GFR-MDRD 82; Glucose 126 mg/dL (83-110); Potassium 3.8 mmol/L (3.5-5.1); Sodium 135 mmol/L (136-145)
[2019-12-09] MEDS: Dexamethasone 4 MG TAB PO SCH (08:20)
[2019-12-09] MEDS: Aspirin 81 mg Enteric Coated Tablet PO SCH (08:20)
[2019-12-09] MEDS: Zinc Sulfate 220 MG CAP PO SCH (08:20)
[2019-12-09] MEDS: Enoxaparin Sodium 40 MG/0.4 ML SYRINGE SC SCH (08:20)
[2019-12-09] MEDS: Benzonatate 100 MG CAP PO PRN (08:20)
[2019-12-09] MEDS: Hydroxychloroquine Sulfate 200 MG TAB PO SCH (08:20)
[2019-12-09] MEDS: Allopurinol 100 MG TAB PO SCH (08:20)
[2019-12-09 11:37] VITALS: BP 134/69; TEMP 96.7
--- NOTE | 2019-12-11 12:31 | PQF ---
CLINICAL DOCUMENTATION CLARIFICATION FORM: Dear : Dennis Viveros Date / Time: 12/11/2019 Please exercise your independent, professional judgment in responding to the clarification form. Clinical indicators are provided on the bottom of this form for your review Please check appropriate box(es): [ x ] COVID-19 with pneumonia [ ] COVID-19 without pneumonia [ ] Other diagnosis [ ] Unable to determine In addition, please specify: Present on Admission (POA): [ x ] Yes [ ] No [ ] Unable to determine To be completed by CDI/Coding staff for physician review: Present Clinical Indicators - Signs / Symptoms / Labs Results and Location in Medical Record [ x ] New airspace disease involving the left lower lobe with small left pleural effusion is suspicious for pneumonia Chest x-ray 12/06 by Cesar Slaughter MD [ x ] Persistent but slightly decreased opacity in the left lower lobe Chest x- ray 12/07 by Simon Bertrand MD [ x ] COVID-19 in a high risk individual due to advanced age and history of lung disease H&P Present Risk Factors Results and Location in Medical Record [ x ] COVID-19 positive patient, COPD, history of asbestos exposure, history of CAD H&P Present Treatments Results and Location in Medical Record [ x ] IV Azithromycin 12/06-12/08 Medications [ x ] Chest x-rays 12/06 and 12/07 Reports [employer] Signature: [id number] Phone #: Date/Time: 12/11/2019 This is a permanent part of the Medical Record [facility]
== END 2019-12-09 12:09 | disposition home or self-care (01) | DRG 177 ==
LOC: 2SW 17:46
PROVIDERS: ADMIT Specialist; ATTEND Specialist
PROC: 8E0ZXY6 Isolation (ICD-10-PCS; principal; 2019-12-06)
DX: U07.1 COVID-19 (principal); J12.89 Other viral pneumonia; I25.10 Atherosclerotic heart disease of native coronary artery without angina pectoris; I50.9 Heart failure, unspecified; J44.9 Chronic obstructive pulmonary disease, unspecified; E78.5 Hyperlipidemia, unspecified; R48.8 Other symbolic dysfunctions; J61 Pneumoconiosis due to asbestos and other mineral fibers; Z77.090 Contact with and (suspected) exposure to asbestos; Z95.5 Presence of coronary angioplasty implant and graft; Z95.1 Presence of aortocoronary bypass graft; Z90.89 Acquired absence of other organs; Z87.891 Personal history of nicotine dependence
CPT/HCPCS: 36415; 71045; 80048; 82728; 84145; 85025; 85379; 85652; J0456; J1650; J7050; J8540

== ENCOUNTER 2019-12-16 16:31 | Outpatient (CLI) | payer MEDICARE, OTHER ==
--- NOTE | 2019-12-16 18:34 | RAD ---
CHEST 2 VIEWS: Date: 12/16/2019 INDICATION: History of COVID-19. COMPARISON: Prior exam dated 12/08/2019. FINDINGS: Post CABG change and dual lead pacemaker is stable appearing. Lungs are clear. No pleural effusion or pneumothorax is evident. Mild spondylosis of the thoracic spine is stable. There are postsurgical ch anges of a right rotator cuff repair which is stable appearing. IMPRESSION: No acute air space opacity demonstrated. Small left pleural effusion present6 on the prior examinatio n has resolved. POS: BH
== END 2019-12-16 16:32 | disposition home or self-care (01) ==
LOC: BICRAD 16:31
PROVIDERS: ATTEND Specialist
DX: U07.1 COVID-19 (principal)
CPT/HCPCS: 71046

== ENCOUNTER 2020-02-24 12:16 | Outpatient (CLI) | payer MEDICARE ==
--- NOTE | 2020-02-24 12:32 | RAD ---
Chest 2 views HISTORY: Dyspnea. COMPARISON: 12/16/2019. FINDINGS: Cardiac silhouette and pulmonary vasculature are unremarkable. Mediastinum is midline with postoperative changes, aortic calcification, and a dually left subclavian cardiac electronic device. Lungs remain hyperinflated with flattening of each hemidiaphragm. Parenchymal scarring involves each lung base. No lobar consolidation, pleural fluid, or pneumothorax evident. Postoperative changes right shoulder. IMPRESSION : Pulmonary hyperinflation and other chronic-type findings are stable.
== END 2020-02-24 12:17 | disposition home or self-care (01) ==
LOC: BICRAD 12:16
PROVIDERS: ATTEND Internal Medicine Critical Care Medicine
DX: R06.00 Dyspnea, unspecified (principal); R91.8 Other nonspecific abnormal finding of lung field
CPT/HCPCS: 71046

== ENCOUNTER 2021-07-16 12:43 | Outpatient (CLI) | payer MEDICARE | END 2021-07-16 12:44 | disposition home or self-care (01) | LOC: BICRAD 12:43 | PROVIDERS: ATTEND Specialist | DX: R06.00 Dyspnea, unspecified (principal); J98.4 Other disorders of lung; R91.8 Other nonspecific abnormal finding of lung field; Z95.0 Presence of cardiac pacemaker | CPT/HCPCS: 71046 ==

== ENCOUNTER 2023-11-07 17:03 | Emergency (ER) | payer MEDICARE, OTHER | END 2023-11-07 18:21 | disposition home or self-care (01) | LOC: ERS 17:03 | DX: S00.06XA Insect bite (nonvenomous) of scalp, initial encounter (principal); L01.00 Impetigo, unspecified; F17.210 Nicotine dependence, cigarettes, uncomplicated; W57.XXXA Bitten or stung by nonvenomous insect and other nonvenomous arthropods, initial encounter | CPT/HCPCS: 99282 ==